=== PATIENT | male | born 1990 | race Hispanic/Latino ===

== ENCOUNTER 2020-04-10 11:19 | Emergency (ER) | payer OTHER ==
[~2020-04-10] VITALS: Ht 167.6 cm; Wt 74.1 kg
[2020-04-10 12:08] LABS: BASO % 0.4 % (0.0-1.0); EOS # 0.1 10^3/uL (0.0-0.5); EOS % 1.7 % (0.0-3.0); HEMATOCRIT 52.5 % (42.0-52.0); HEMOGLOBIN 17.7 g/dl (13.5-17.5); LYMPH # 3.3 10^3/uL (1.5-5.0); LYMPH % 39.4 % (24.0-44.0); MEAN CORPUSCULAR HEMOGLOBIN 29.9 pg (27.0-33.0); MEAN CORPUSCULAR HGB CONC 33.7 g/dl (32.0-36.5); MEAN CORPUSCULAR VOLUME 88.8 fl (80.0-96.0); MONO # 0.8 10^3/uL (0.0-0.8); MONO % 9.7 % (0.0-5.0); NEUTROPHILS # 4.1 10^3/uL (1.5-8.5); NEUTROPHILS % 48.7 % (36.0-66.0); PLATELET COUNT, AUTOMATED 189 10^3/uL (150-450); RED BLOOD COUNT 5.91 10^6/uL (4.30-6.10); WHITE BLOOD COUNT 8.4 10^3/uL (4.0-10.0)
[2020-04-10] MEDS ORDERED: NS 1,000 ML IV ONE (12:15)
--- NOTE | 2020-04-10 12:38 | REP ---
INDICATION: constipation, flank pain. COMPARISON: None. TECHNIQUE: AP view abdomen and pelvis. FINDINGS: Moderate fecal material seen throughout the colon. No dilated small bowel loops are seen. There is no evidence of bowel obstruction. No abnormal calcifications are seen. The visualized osseous structures are unremarkable. IMPRESSION: Moderate fecal material seen throughout the colon. No evidence of bowel obstruction. <Electronically signed by Antwan Marquez > 04/10/20 [id number]
--- NOTE | 2020-04-10 12:49 | REP ---
INDICATION: flank pain. COMPARISON: None. TECHNIQUE: Real-time sonographic evaluation of the kidneys is performed. FINDINGS: Renal cortical echogenicity pattern is normal bilaterally and contours are smooth. There is no hydronephrosis bilaterally. There is a simple 9 mm cyst of the mid left kidney. No definite renal stone is seen. The right kidney measures 10.7 x 4.8 x 4.6 cm. Left renal dimensions are 10.0 x 6.3 x 5.6 cm. The urinary bladder is unremarkable. Ureteral jets could not be visualized in the urinary bladder with Doppler color evaluation. IMPRESSION: No hydronephrosis. Subcentimeter cyst left kidney. Ureteral jets could not be visualized. <Electronically signed by Antwan Marquez > 04/10/20 0822
[2020-04-10 13:16] LABS: ALBUMIN 4.4 GM/DL (3.2-5.2); BILIRUBIN,DIRECT 0.2 MG/DL (0.0-0.2); BILIRUBIN,TOTAL 0.9 MG/DL (0.2-1.0); TOTAL PROTEIN 7.9 GM/DL (6.4-8.2)
[2020-04-10 13:50] VITALS: BP 144/77
[2020-04-10] MEDS ORDERED: MIRA3350 PO (14:45)
[2020-04-10] MEDS ORDERED: COLA100C5 PO (14:45)
== END 2020-04-10 15:13 | disposition home or self-care (01) ==
LOC: M ED 11:19
DX: K59.00 Constipation, unspecified (principal); N28.1 Cyst of kidney, acquired